=== PATIENT | female | born 1980 | race Caucasian/White ===

== ENCOUNTER 2016-04-13 15:40 | Inpatient (IN) | payer OTHER ==
[2016-04-13] MEDS ORDERED: DEXTROSE 5%-LACTATED RINGERS 1,000 ML IV ONE (16:20)
[2016-04-13] MEDS ORDERED: OXYTOCIN 15 UNITS/ LR 250 ML 250 ML IVPB SCH (16:20)
[2016-04-13] MEDS ORDERED: AMPICILLIN - 100 ML IVPB ONE (16:20)
[2016-04-13 17:00] VITALS: BMI 29.8
[2016-04-13] MEDS ORDERED: DEXTROSE 5%-LACTATED RINGERS 1,000 ML IV SCH (17:15)
--- NOTE | 2016-04-13 17:15 | HP ---
Past Medical History - Primary Care Physician PCP:: Dannie Soto - Admission Chief Complaint: 35 yo P1 with at EGA 40w admitted for induction of labor with favorable cervix. History of Present Illness: complicated by AMA, vag cx GBS(+). 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: Alzheimer's, CVA, Dementia, Migraine, Multiple Sclerosis, Peripheral Neuropathy, Parkinson's, Seizure, Syncope, TIA, Vertigo, Other Cardiovascular: No: AFIB, Aneurysm, Aortic Insufficiency, Aortic Stenosis, CAD, CHF, Deep Vein Thrombosis, HTN, Hyperlipdemia, [place], Mitral Insufficiency, Mitral Stenosis, Murmur, Pulmonary Hypertension, Other Pulmonary: No: Asthma, Bronchitis, Cancer, COPD, O2 Dependent, Pneumonia, Previously Intubated, Pulmonary Embolus, Pulmonary Fibrosis, Sleep Apnea, Other Gastrointestinal: No: Ascites, Cancer, Constipation, Crohn's Disease, Diverticulitis, Diverticulosis, Esophageal Varices, Gastritis, GERD, GI Bleed, Hemorrhoids, Hiatal Hernia, Inflamatory Bowel Disease, Irritable Bowel Disease, Pancreatitis, Peptic Ulcer Disease, Ulcerative Colitis, Other Hepatobiliary: No: Cirrhosis, Cholelithiasis, Cholecystitis, Choledocholithiasis , Hepatitis A, Hepatitis B, Hepatitis C, Other Renal/: No: Renal Failure, Renal Inusuff, BPH, Cancer, Hematuria, Hemodialysis , Neurogenic Bladder, Renal Calculi, UTI, Other Reproductive: No: Ectopic , Endometriosis, Fibroids, PID, Polycystic Ovary Syndrome, Postmenopausal, Other ...: 2 ...Para: 1 ...Term: 0 ...: 0 ...Spon : 0 ...Induced : 0 ...Multiple Gestation: 0 ...LMP: 08/07/15 ...EDC by Sono: 04/13/16 Heme/Onc: No: Anemia, B12 Deficiency, Bleeding Disorder, Cancer, Current Chemotherapy, Current Radiation Therapy, Hemochromatosis, Hypercoaguable State, Myeloproliferative Synd, Sickle Cell Disease, Sickle Cell Trait, Thrombocytopenia, Other Infectious Disease: No: AIDS, C-Diff, Herpes Zoster, HIV, MRSA, STD's, Tuberculosis, VREF, Other Psych: No: Addictions, Anxiety, Bipolar, Depression, Panic, Psychosis, Schizophrenia, Other Musculoskeletal: No: Bursitis, Chronic low back pain, Hemiparesis, Hemiplegia, Osteoarthritis, Paraplegia, Other Rheumatology: No: Fibromyalgia, Gout, Lupus, Rheumatoid Arthritis, Sarcoidosis, Vasculitis, Other ENT: No: Allergic Rhinitis, Sinusitis, Other Endocrine: No: Cayden's Disease, [place]'s Disease, Diabetes Insipidus, Diabetes Mellitus, Hyperparathyroidism, Hyperthyroidism, Hypothyroidism, Osteopenia, SIADH, Other Dermatology: Yes: Psoriasis - Past Surgical History Past Surgical History: Yes: Hernia Repair (Hiatal) Hx Myomectomy: No Hx Transabdominal Cerclage: No - Smoking History Smoking history: Never smoked Have you smoked in the past 12 months: No Aproximately how many cigarettes per day: 0 - Alcohol/Substance Use Hx Alcohol Use: No History of Substance Use: reports: None - Social History Usual Living Arrangement: Yes: With Spouse, With Child ADL: Independent History of Recent Travel: No Home Medications - Allergies Allergies/Adverse Reactions: Allergies Allergy/AdvReac Type Severity Reaction Status Date / Time No Known Allergies Allergy Verified 04/09/16 20:46 - Home Medications Home Medications: Ambulatory Orders Vitamins 1 tab PO DAILY 04/13/16 Zantac - 1 tab PO PRN 04/13/16 Family Disease History - Family Disease History Family History: Unremarkable Review of Systems - Review of Systems Constitutional: reports: No Symptoms Eyes: reports: No Symptoms HENT: reports: No Symptoms Neck: reports: No Symptoms Cardiovascular: reports: No Symptoms Respiratory: reports: No Symptoms Gastrointestinal: reports: No Symptoms Genitourinary: reports: No Symptoms Breasts: reports: No Symptoms Reported Musculoskeletal: reports: No Symptoms Integumentary: reports: No Symptoms Neurological: reports: No Symptoms Endocrine: reports: No Symptoms Hematology/Lymphatic: reports: No Symptoms Psychiatric: reports: No Symptoms Pain Intensity: 2 Physical Exam - Maternity Constitutional: Yes: Well Nourished, No Distress, Calm Eyes: Yes: WNL, Conjunctiva Clear HENT: Yes: WNL, Atraumatic, Normocephalic Neck: Yes: WNL, Supple, Trachea Midline Cardiovascular: Yes: WNL, Regular Rate and Rhythm Lungs: Clear to auscultation, Normal air movement Breast(s): Yes: WNL - Abdominal Exam/OB Fundal Height: 40 Number of Fetuses: Single Presentation: Vertex Contractions: Yes Regularity: Irregular Intensity: Mild Monitor Mode: External Heart Rate (range): 135 Heart Rate Location: Midline Category: I Accelerations: Non-Uniform Decelerations: None - Vaginal Exam/OB Vaginal Bleediing: No Speculum Exam: No Dilatation (cm): 3 Effacement (%): 60 Presentation: Vertex/Position Station: -2 - Physical Exam Musculoskeletal: Yes: WNL Extremities: Yes: WNL Edema: Yes Edema: LLE: Trace, RLE: Trace Integumentary: Yes: WNL Deep Tendon Reflex Grade: Normal +2 ...Motor Strength: WNL Psychiatric: Yes: WNL, Alert, Oriented Hemorrhage Risk Assessment - Risk Factors Medium Risk Factors: Yes: None High Risk Factors: Yes: None Risk Score: 1 Risk Level: Medium Risk Imaging - Results Ultrasound: Report Reviewed Assessment/Plan 35 yo P1 with at EGA 40w admitted for induction of labor with favorable cervix. Pt has some contractions but is not in labor. Fetus requires no intervention. Plan to proceed with labor induction. Risks and benefits were discussed with patient.
[2016-04-13 17:50] LABS: BASOPHIL 0.6 % (0-2.0); EOSINOPHIL 1.2 % (0-4.5); MCH 28.9 pg (25.7-33.7); MCHC 33.7 g/dl (32.0-36.0); MEAN CELL VOLUME 85.8 fl (80-96); MEAN PLT VOLUME 9.4 fl (7.5-11.1); NEUTROPHILS 73.7 % (42.8-82.8); PLATELET COUNT 208 K/MM3 (134-434); RDW 13.9 % (11.6-15.6)
[2016-04-13 18:06] LABS: INR 1.01 (0.82-1.09); PROTHROMBIN TIME (PATIENT) 11.1 SEC (9.98-11.88)
[2016-04-13 18:09] LABS: ACTIVATED PTT 31.4 SECONDS (26.9-34.4)
[2016-04-13 18:14] LABS: CALCIUM 9.4 mg/dL (8.5-10.1); CREATININE 0.4 mg/dL (0.55-1.02)
[2016-04-13 18:54] LABS: HIV 1 & 2 AB NEGATIVE; HIV 1 AGp24 NEGATIVE
[2016-04-13] MEDS: AMPICILLIN - 100 ML IVPB SCH (20:20)
--- NOTE | 2016-04-13 20:56 | PN ---
Ante-Partal Exam - Subjective Subjective: No complaints. Vital Signs: Vital Signs Temperature 98.2 F 04/13/16 19:00 Pulse Rate 93 H 04/13/16 19:00 Respiratory Rate 20 04/13/16 19:00 Blood Pressure 122/71 04/13/16 19:00 O2 Sat by Pulse Oximetry (%) Bleeding: No Headache: No Visual changes: No Right upper quadrant pain: No Pain (scale 1-10): 7 - Contractions Contractions: Yes (q2min) Regularity: Regular Intensity: Moderate Monitor Mode: External - Exam during Labor Heart Rate: 140 Variability: Moderate Category: I Monitor Accelerations: Present Monitor Decelerations: None Exam: Vaginal Dilatation (cm): 5 Effacement (%): 80 Amniotic Membrane Status: Ruptured (AROM) Amniotic Fluid: Clear Presentation: Vertex Station: -1 (Adequate pelvimetry) - Intrapartum Hemorrhage Risk Medium Risk Factors: None High Risk Factors: None Risk Score: 0 Risk Level: Low Risk - Assessment/Plan Assessment/Plan: 35yo P1 andergoing labor induction. Fetus with Category I tracing. Pt requested epidural and anesthesia was called.
[2016-04-13] MEDS ORDERED: ELECTROLYTE-148 SOLN 500 ML IV ONE (21:04)
[2016-04-13] MEDS ORDERED: FENTANYL/BUPIVACAINE/NS/PF - PCEA - 50 ML DISP.SYRIN EP SCH (21:15)
[2016-04-13] MEDS ORDERED: ELECTROLYTE-148 SOLN 1,000 ML IV SCH (21:15)
[2016-04-14] MEDS: AMPICILLIN - 100 ML IVPB SCH (00:20)
[2016-04-14] MEDS: IBUPROFEN 600 MG TABLET (FP) PO PRN ×4 (02:00→22:46)
[2016-04-14 02:20] LABS: ARTERIAL BLD GAS O2 SATURATION 18.3 % (90-98.9); ARTERIAL BLOOD GAS BASE EXCESS -5.3 meq/l (-2-2); ARTERIAL BLOOD GAS PO2 15.3 mmHg (80-100)
[2016-04-14 02:21] LABS: ARTERIAL BLOOD GAS HCO3 22.3 meq/L (22-26); LPM/O2% 21%; PT. ON O2? NO
[2016-04-14 02:24] LABS: ARTERIAL BLOOD GAS pH 7.26 (7.35-7.45)
[2016-04-14 02:26] LABS: ARTERIAL BLD GAS O2 SATURATION 70.9 % (90-98.9); ARTERIAL BLOOD GAS BASE EXCESS -3.4 meq/l (-2-2); ARTERIAL BLOOD GAS HCO3 20.1 meq/L (22-26)
[2016-04-14 02:27] LABS: LPM/O2% 21%; PT. ON O2? NO
[2016-04-14 02:30] LABS: ARTERIAL BLOOD GAS pH 7.39 (7.35-7.45)
[2016-04-14] MEDS ORDERED: ACETAMINOPHEN 1000 MG/100 ML VIAL (NON FORMULARY) IVPB PRN (03:13)
[2016-04-14] MEDS ORDERED: METHYLERGONOVINE MALEATE 0.2 MG/1 ML AMP IM PRN (03:41)
[2016-04-14] MEDS ORDERED: BENZOCAINE 28 GM HEMORRHOIDAL OINTMENT TP PRN (03:41)
[2016-04-14] MEDS ORDERED: BENZOCAINE 20% 57 GM BOTTLE TP PRN (03:41)
[2016-04-14] MEDS ORDERED: WITCH HAZEL 50% (TUCKS) 40 PAD/JAR PAD TP PRN (03:41)
[2016-04-14] MEDS ORDERED: BISACODYL 10 MG SUPP.RECT RC PRN (03:41)
[2016-04-14] MEDS ORDERED: D5W-LR W/ 20 UNITS OXYTOCIN 1,000 ML IV SCH (03:45)
[2016-04-14] MEDS ORDERED: TUBERCULIN PPD 5 TU/0.1ML SYRINGE (IN PATIENT USE ONLY) ID ONE (05:00)
--- NOTE | 2016-04-14 05:48 | PN ---
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 Mother and baby are well.
--- NOTE | 2016-04-14 08:34 | PN ---
Progress Note (short form) - Note Progress Note: S/P Vaginal delivery with epidural anesthesia at 1.31am today.Patient had a wet tap and c/o headache.So took 30mls of patients blood under sterile conditions from right ACF anf ijected through epidural cathater.Patient stable and has relief of headache.Epidural cathater taken out.
[2016-04-14] MEDS: PRENATAL VITAMINS W/ FOLIC ACID TABLET (FP) PO SCH (09:27)
[2016-04-15 08:42] LABS: BASOPHIL 0.9 % (0-2.0); EOSINOPHIL 2.5 % (0-4.5); MCHC 33.5 g/dl (32.0-36.0); MEAN CELL VOLUME 86.5 fl (80-96); MEAN PLT VOLUME 8.5 fl (7.5-11.1); NEUTROPHILS 63.5 % (42.8-82.8); PLATELET COUNT 181 K/MM3 (134-434); RDW 13.9 % (11.6-15.6)
[2016-04-15] MEDS: PRENATAL VITAMINS W/ FOLIC ACID TABLET (FP) PO SCH (09:24)
[2016-04-15] MEDS: IBUPROFEN 600 MG TABLET (FP) PO PRN ×3 (09:24→22:34)
--- NOTE | 2016-04-15 11:20 | PN ---
Post Progress Note - Subjective Subjective: 35 yo P2 now no complains Post Day: 1 Type of Delivery: Vital Signs: Vital Signs Temperature 97.5 F L 04/15/16 08:07 Pulse Rate 68 04/15/16 08:07 Respiratory Rate 18 04/15/16 08:07 Blood Pressure 111/65 04/15/16 08:07 O2 Sat by Pulse Oximetry (%) 100 04/14/16 03:15 Breast Exam: Yes: Soft Uterus: Yes: Fundus Firm, Non-tender Abdomen/GI: Yes: Abdomen soft Lochia: Yes: Rubra Lochia, amount: Small Extremities: Yes: Calves non-tender Perineum: Yes: Intact Activity: Ambulating - Labs Labs: CBC WBC 10.0 K/mm3 (4.0-10.0) 04/15/16 08:00 RBC 3.93 M/mm3 (3.60-5.2) 04/15/16 08:00 Hgb 11.4 GM/dL (10.7-15.3) D 04/15/16 08:00 Hct 34.0 % (32.4-45.2) 04/15/16 08:00 MCV 86.5 fl (80-96) 04/15/16 08:00 MCHC 33.5 g/dl (32.0-36.0) 04/15/16 08:00 RDW 13.9 % (11.6-15.6) 04/15/16 08:00 Plt Count 181 K/MM3 (134-434) 04/15/16 08:00 MPV 8.5 fl (7.5-11.1) 04/15/16 08:00 Neutrophils % 63.5 % (42.8-82.8) 04/15/16 08:00 Lymphocytes % 26.3 % (8-40) D 04/15/16 08:00 Monocytes % 6.8 % (3.8-10.2) 04/15/16 08:00 Eosinophils % 2.5 % (0-4.5) D 04/15/16 08:00 Basophils % 0.9 % (0-2.0) 04/15/16 08:00 Assessment/Plan 35yo P2 PPD#1 s/p , VSS, afibrile doing well Rh+ Baby boy - Circumcision done cont. routine care Plan to D/C in am
[2016-04-15] MEDS ORDERED: SENNOSIDES/DOCUSATE COMBO (SENNA PLUS) TABLET (UD) PO PRN (22:00)
[2016-04-15] MEDS: ACETAMINOPHEN 325 MG TABLET (FP) PO PRN (22:34)
[2016-04-16] MEDS: ACETAMINOPHEN 325 MG TABLET (FP) PO PRN (06:22)
[2016-04-16] MEDS: IBUPROFEN 600 MG TABLET (FP) PO PRN (06:22)
[2016-04-16 07:24] VITALS: BP 123/76; PULSE 72; TEMP 97.5
--- NOTE | 2016-04-16 08:00 | PN ---
Post Progress Note - Subjective Subjective: 35yo P1 PPD #2 no complains Post Day: 2 Type of Delivery: Vital Signs: Vital Signs Temperature 97.5 F L 04/16/16 07:22 Pulse Rate 72 04/16/16 07:22 Respiratory Rate 20 04/16/16 07:22 Blood Pressure 123/76 04/16/16 07:22 O2 Sat by Pulse Oximetry (%) 100 04/14/16 03:15 Breast Exam: Yes: Soft Uterus: Yes: Fundus Firm, Non-tender Abdomen/GI: Yes: Abdomen soft Lochia: Yes: Rubra Lochia, amount: Small Extremities: Yes: Calves non-tender Perineum: Yes: Intact Activity: Ambulating - Labs Labs: CBC WBC 10.0 K/mm3 (4.0-10.0) 04/15/16 08:00 RBC 3.93 M/mm3 (3.60-5.2) 04/15/16 08:00 Hgb 11.4 GM/dL (10.7-15.3) D 04/15/16 08:00 Hct 34.0 % (32.4-45.2) 04/15/16 08:00 MCV 86.5 fl (80-96) 04/15/16 08:00 MCHC 33.5 g/dl (32.0-36.0) 04/15/16 08:00 RDW 13.9 % (11.6-15.6) 04/15/16 08:00 Plt Count 181 K/MM3 (134-434) 04/15/16 08:00 MPV 8.5 fl (7.5-11.1) 04/15/16 08:00 Neutrophils % 63.5 % (42.8-82.8) 04/15/16 08:00 Lymphocytes % 26.3 % (8-40) D 04/15/16 08:00 Monocytes % 6.8 % (3.8-10.2) 04/15/16 08:00 Eosinophils % 2.5 % (0-4.5) D 04/15/16 08:00 Basophils % 0.9 % (0-2.0) 04/15/16 08:00 Assessment/Plan 35yo P2 PPD#2 s/p , VSS, afibrile doing well Rh+ Baby boy - Circumcision done Plan to D/C in am NPV x 6wks RTO 6wks
--- NOTE | 2016-04-16 08:45 | DS ---
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 Vital Signs: Vital Signs Temperature 97.5 F L 04/16/16 07:22 Pulse Rate 72 04/16/16 07:22 Respiratory Rate 20 04/16/16 07:22 Blood Pressure 123/76 04/16/16 07:22 O2 Sat by Pulse Oximetry (%) 100 04/14/16 03:15 Constitutional: Yes: Well Nourished Eyes: Yes: WNL HENT: Yes: WNL Neck: Yes: WNL Cardiovascular: Yes: WNL Respiratory: Yes: WNL Gastrointestinal: Yes: WNL Renal/: Yes: WNL, Urethral Discharge External Genitalia: Yes: Normal Uterus: Yes: Normal, Firm ....Post : Yes: Uterus firm Breast(s): Yes: WNL Musculoskeletal: Yes: WNL Extremities: Yes: WNL Edema: No Integumentary: Yes: WNL Neurological: Yes: WNL ...Motor Strength: WNL Labs: CBC, BMP 04/15/16 08:00 04/13/16 17:15 Delivery - Delivery Vaginal Delivery: No Problems, Spontaneous Type of Anesthesia: Epidural Episiotomy/Laceration: None EBL (cc): 300 Delivery, Single - Stages of Labor Date 1st Stage Initiatied: 04/13/16 Time 1st Stage Initiated: 13:30 Date 2nd Stage Initiated: 04/14/16 Time 2nd Stage Initiated: 00:40 Date of Delivery: 04/14/16 Time of Delivery: 01:31 Time Placenta Delivered: 01:35 Placenta: Yes: Spontaneous, Normal Configuration - 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 You may walk unlimited mat of and climb stairs. You may resume driving the car when you feel safe and comfortable behind the wheel. No sexual activity as instructed. Wound care If you have a bandage, leave it on, and keep dry for 48-72 hours. After that time discard the outer bandage. If they are tapes on the skin under the out of bandage leave them in place. They will peel off in the next 7 to 10 days. Do Not Peel them off. You may shower the day after surgery. If there are tapes present on the skin, you may shower over them. Diet There are no dietary restrictions. Eat healthy, high-fiber foods. Drink 6 to 8 glasses of liquid each day. This will assist in keeping your bowels are regular. Pain management You may take Tylenol or acetaminophen or Ibuprofen (for example, Motrin, Advil etc.) from my pain prescription medication is ordered should be taken as prescribed for moderate to severe pain. Call MD for any of the following: Severe pain not relieved by medication Fever of 101 or higher Excessive bleeding or drainage on dressing Inability to urinate Referrals: Dannie Soto MD [Staff Physician] - Disposition: HOME - Home Medications Comprehensive Discharge Medication List: Ambulatory Orders Vitamins 1 tab PO DAILY 04/13/16 Zantac - 1 tab PO PRN 04/13/16 Ibuprofen [Motrin -] 600 mg PO QID #28 tablet 04/16/16
[2016-04-16] MEDS: PRENATAL VITAMINS W/ FOLIC ACID TABLET (FP) PO SCH (09:19)
== END 2016-04-16 11:00 | disposition home or self-care (01) | DRG 775 ==
LOC: JLDR 15:40 → J3W 04-14 04:00
PROVIDERS: ADMIT Obstetrics & Gynecology; ATTEND Obstetrics & Gynecology
PROC: 10E0XZZ Delivery of Products of Conception, External Approach (ICD-10-PCS; principal; 2016-04-13)
PROC: 10907ZC Drainage of Amniotic Fluid, Therapeutic from Products of Conception, Via Natural or Artificial Opening (ICD-10-PCS; 2016-04-14)
DX: O48.0 Post-term pregnancy (principal); Z3A.40 40 weeks gestation of pregnancy; Z37.0 Single live birth; O09.523 Supervision of elderly multigravida, third trimester
CPT/HCPCS: 36415; 36600; 59409; 80048; 82803; 85025; 85610; 85730; 86593; 86850; 86900; 86901; 87389

== ENCOUNTER 2016-04-17 12:36 | Emergency (ER) | payer OTHER ==
[2016-04-17 12:42] VITALS: TEMP 98; BMI 28.3
[2016-04-17] MEDS ORDERED: SODIUM CHLORIDE 1,000 ML IV ONE (13:04)
[2016-04-17] MEDS ORDERED: METOCLOPRAMIDE HCL INJECTION 10 MG/2 ML VIAL IVPUSH ONE (13:04)
[2016-04-17 13:38] LABS: BASOPHIL 0.9 % (0-2.0); EOSINOPHIL 0.8 % (0-4.5); MCH 29.1 pg (25.7-33.7); MCHC 33.3 g/dl (32.0-36.0); MEAN CELL VOLUME 87.3 fl (80-96); NEUTROPHILS 80.3 % (42.8-82.8); PLATELET COUNT 230 K/MM3 (134-434); RDW 14.2 % (11.6-15.6); WHITE BLOOD COUNT 8.8 K/mm3 (4.0-10.0)
--- NOTE | 2016-04-17 13:38 | PDOC ---
History of Present Illness - General Chief Complaint: Headache Stated Complaint: HEADACHES/blood patch Time Seen by Provider: 04/17/16 13:02 History Source: Patient Exam Limitations: No Limitations - History of Present Illness Initial Comments: 04/17/16 20:21 The patient is a 35 year old female, who recently gave 3 days ago, with no significant past medical history who presents to the emergency department with headache s/p blood patch. Patient reports having a normal vaginal with an epidural, developed a headache a day later, had a blood patch with improvement, but started having a mild headache the day of disahrge but was manageemnt, but gradually got worse at home. She reports her headache has only been getting worse since being discharged home. She reports being unable to do daily activities secondary to headache. She ranks her headache a 10/10 in pain intensity. She reports her headache is often alleviated with lying down on one side and worse when standing or walking.Pt states the nature of the headache is the same as her headache she devloped after the epidural. She reports taking advil since the onset of her symptoms every 6 hours with minimal improvement, most recent was at 9:30am. She called her obgyn who told her to come to the ED. Patient reports having no complications with the birthing process. Baby was born healthy with no medical problems. She denies any blurry vision or changes in vision. She denies recent fever, chills, and dizziness. She denies recent nausea, vomit, diarrhea and constipation. Allergies: NKA Past surgical history: None reported. Social history: Nonsmoker. Past History - Past Medical History Allergies/Adverse Reactions: Allergies Allergy/AdvReac Type Severity Reaction Status Date / Time No Known Allergies Allergy Verified 04/17/16 12:37 Home Medications: Ambulatory Orders Vitamins 1 tab PO DAILY 04/13/16 Ibuprofen [Motrin -] 600 mg PO QID #28 tablet 04/16/16 Asthma: No Cancer: No Cardiac Disorders: No Diabetes: No GI Disorders: Yes (GERD) HTN: No Seizures: No Thyroid Disease: No Other medical history: none - Psycho/Social/Smoking Cessation Hx Anxiety: No Suicidal Ideation: No Smoking Status: No Smoking History: Never smoked Have you smoked in the past 12 months: No Number of Cigarettes Smoked Daily: 0 Information on smoking cessation initiated: No Hx Alcohol Use: No Drug/Substance Use Hx: No Substance Use Type: None Hx Substance Use Treatment: No Review of Systems - Review of Systems Able to Perform ROS?: Yes Comments:: 04/17/16 20:23 CONSTITUTIONAL: No reported: Fever, Chills, Diaphoresis, Generalized Weakness, Malaise, Loss of Appetite HEENT: No reported: Rhinorrhea, Nasal Congestion, Throat Pain, Throat Swelling, Difficulty Swallowing, Mouth Swelling, Ear Pain, Eye Pain, Visual Changes CARDIOVASCULAR: No reported: Chest Pain, Syncope, Palpitations, Irregular Heart Rate, Lightheadedness, Peripheral Edema RESPIRATORY: No reported: Cough, Shortness of Breath, SOB with Exertion, Orthopnea, Wheezing , Stridor, Hemoptysis GASTROINTESTINAL: No reported: Abdominal pain, Abdominal Distension, Nausea, Vomiting, Diarrhea, Constipation, Melena, Hematochezia GENITOURINARY: No reported: Dysuria, Frequency, Urgency, Hesitancy, Flank Pain, Genital Pain MUSCULOSKELETAL: No reported: Myalgia, Arthralgia, Joint Swelling, Back pain, Neck Pain SKIN: No reported: Rash, Itching, Pallor HEMEATOLOGIC/IMMUNOLOGIC: No reported: Easy Bleeding, Easy Bruising, Lymphadenopathy, Frequent infections ENDOCRINE: No reported: Unexplained Weight Gain, Unexplained Weight Loss, Heat Intolerance , Cold Intolerance NEUROLOGIC: +Headache. No reported: Focal Weakness, Paresthesias, Vertigo, Lightheadedness, Unsteady Gait, Seizure, Mental Status Changes, Incontinence PSYCHIATRIC: No reported: Anxiety, Depression *Physical Exam - Vital Signs Last Vital Signs Temp Pulse Resp BP Pulse Ox 98.0 F 71 18 125/75 100 04/17/16 12:38 04/17/16 12:38 04/17/16 12:38 04/17/16 12:38 04/17/16 12:38 - Physical Exam Comments: 04/17/16 20:23 GENERAL: The patient is awake, alert, and fully oriented, Nontoxic - in no acute distress. HEAD: Normocephalic, atraumatic. EYES: extraocular movements intact, sclera anicteric, conjunctiva clear. ENT: Normal voice, Moist mucous membranes. NECK: Normal range of motion, supple without menignusmus LUNGS: Breath sounds equal, clear to auscultation bilaterally. No wheezes, no rhonchi, no rales. HEART: Regular rate and rhythm, without murmur, rub or gallop. ABDOMEN: Soft, nontender, normoactive bowel sounds. No guarding, no rebound.No CVA tenderness EXTREMITIES: Normal range of motion, no edema. No clubbing or cyanosis. No cords , erythema, or tenderness. NEUROLOGICAL: No facial asymmetry, Normal speech. PSYCH: Normal mood, normal affect. SKIN: Warm, Dry, normal turgor. Lower back is nonerytheamdous, no tenderness, no fluctuance BACK: no focal tenderness, erythema, flctuance in the midline ED Treatment Course - LABORATORY CBC & Chemistry Diagram: 04/17/16 13:10 04/17/16 13:10 Medical Decision Making - Medical Decision Making 04/17/16 13:55 35y F hx approx 3 days post presents with headache, pt had epidural, followed by headache and a blood patch with positional headache that improved, but worsened after she was discharged at home. The patient denies any fever, focal neurologic complaints, exam unreamrakble will discuss with anesthesiology suspect post LP headache w/ failed blood patch - considered bout doubt preeclampsia - pts bp normal here. 04/17/16 16:04 pts blood work reviewed slightly eelvated sodium and choloride pt s/p blood patch, feels improved with complete resolution of headache will dc to fu with pmd supportive measures at home with motrin/tylenol, bed rest, hydration. I discussed the physical exam findings, ancillary test results and final diagnoses with the patient. I answered all of the patient's questions. The patient was satisfied with the care received and felt comfortable with the discharge plan and treatment plan. The patient will call their primary care physician within 24 hours to arrange follow-up and will return to the Emergency Department with any new, persistent or worsening symptoms. *DC/Admit/Observation/Transfer Diagnosis at time of Disposition: Headache, post-lumbar puncture - Discharge Dispostion Disposition: HOME Condition at time of disposition: Improved Admit: No - Referrals Referrals: Ian Griffin MD [Primary Care Provider] - - Patient Instructions Printed Discharge Instructions: DI for Headache Additional Instructions: Return to the emergency department immediately with ANY new, persistent or worsening symptoms including worsening headache, vision changes, numbness/ tingling/weakness, persistent nausea and vomiting or any other concerns. Take ibuprofen/tylenol as needed for headache. Make sure you are getting adaqute sleep and hydration. You MUST call and follow up with your doctor tomorrow for further evaluation of your symptoms. Results were discussed with you. Please make sure your doctor reviews the results of your emergency evaluation. If you had any xrays during your visit, it was read preliminarily by myself, a Radiologist will review it and if there are any additional findings we will call you. Print Language: FIJIAN
[2016-04-17 13:57] LABS: URINE APPEARANCE CLEAR; URINE BILIRUBIN NEGATIVE (NEGATIVE); URINE COLOR LTYELLOW; URINE GLUCOSE (UA) NEGATIVE (NEGATIVE); URINE KETONE NEGATIVE (NEGATIVE); URINE NITRITE NEGATIVE (NEGATIVE); URINE PROTEIN NEGATIVE (NEGATIVE); URINE UROBILINOGEN NEGATIVE E.U./dl (0.2-1.0)
[2016-04-17 14:07] LABS: URINE BLOOD 3+ (NEGATIVE); URINE LEUK ESTERASE TRACE (NEGATIVE)
[2016-04-17 14:08] LABS: URINE BACTERIA RARE /hpf (NONE SEEN); URINE MUCUS RARE; URINE RBC 1 /hpf (0-3); URINE WBC 5 /hpf (3-5)
[2016-04-17 14:43] LABS: ALBUMIN 2.6 g/dl (3.4-5.0); BILIRUBIN,TOTAL 0.4 mg/dL (0.2-1.0); CALCIUM 8.4 mg/dL (8.5-10.1); GLUCOSE,RANDOM 86 mg/dL (74-106); SGPT/ALT 35 U/L (12-78)
[2016-04-17 14:46] LABS: ALK PHOS 157 U/L (45-117); ANION GAP 11 (8-16); CO2 23 mmol/L (21-32); CREATININE 0.6 mg/dL (0.55-1.02)
[2016-04-17 14:47] LABS: SGOT/AST 41 U/L (15-37)
--- NOTE | 2016-04-17 15:01 | PN ---
Progress Note (short form) - Note Progress Note: Anesthesia Consultation to ER call 35 y o F presenting clear signs & symptom of PDPH Patient was interviewed & examined. She was treated with epidural blood patch over the weekend,got better but symptoms got worse after a day. she waited another 24 hrs with pain killers but pain increased in intensity. In the ER, VSS,headache with neck pain associated with posture. Another blood patch is proposed, patient agreed. At 2 pm epidural performed under aseptic technique.20 ml of blood injected in the epidural space. Patient laid flat & observed. Showing improvement in headache. Plan, Patient can be discharged in an hour. Tsering Morris.
[2016-04-17 15:47] VITALS: BP 120/77; PULSE 65
== END 2016-04-17 16:13 | disposition home or self-care (01) ==
LOC: JER 12:36
PROC: 3E0S3GC Introduction of Other Therapeutic Substance into Epidural Space, Percutaneous Approach (ICD-10-PCS; principal; 2016-04-17)
DX: O89.4 Spinal and epidural anesthesia-induced headache during the puerperium (principal)
CPT/HCPCS: 36415; 80053; 81003; 81015; 85025; 99283-25